=== PATIENT | female | born 1955 | race Two or more races ===

== ENCOUNTER → 2021-10-23 12:46 | Outpatient (CLI) | payer OTHER | END | disposition home or self-care (01) | LOC: LAB 12:46 | DX: Z20.828 Contact with and (suspected) exposure to other viral communicable diseases (principal) ==

== ENCOUNTER 2021-12-08 10:17 | Outpatient (CLI) | payer OTHER | END 2021-12-08 10:23 | disposition home or self-care (01) | LOC: MAMO-SONO 10:17 | PROVIDERS: ATTEND Family Medicine Adult Medicine | DX: N60.12 Diffuse cystic mastopathy of left breast (principal) ==

== ENCOUNTER 2022-12-21 13:36 | Outpatient (CLI) | payer OTHER | END 2022-12-21 13:38 | disposition home or self-care (01) | LOC: NUCLEAR 13:36 | PROVIDERS: ATTEND Family Medicine Adult Medicine | DX: M81.0 Age-related osteoporosis without current pathological fracture (principal) ==

== ENCOUNTER 2024-02-21 10:00 | Outpatient (CLI) | payer OTHER | END 2024-02-21 10:07 | disposition home or self-care (01) | LOC: MAMO-SONO 10:00 | PROVIDERS: ATTEND Family Medicine Adult Medicine | DX: Z12.31 Encounter for screening mammogram for malignant neoplasm of breast (principal) ==

== ENCOUNTER 2024-06-26 07:45 | Outpatient (CLI) | payer OTHER | END 2024-06-26 07:51 | disposition home or self-care (01) | LOC: RAD 07:45 | PROVIDERS: ATTEND Family Medicine Adult Medicine | DX: G57.11 Meralgia paresthetica, right lower limb (principal); M47.896 Other spondylosis, lumbar region ==

== ENCOUNTER 2024-12-20 08:02 | Outpatient (CLI) | payer OTHER | END 2024-12-20 08:06 | disposition home or self-care (01) | LOC: RAD 08:02 | PROVIDERS: ATTEND Family Medicine Adult Medicine | DX: K21.9 Gastro-esophageal reflux disease without esophagitis (principal); I11.9 Hypertensive heart disease without heart failure ==

== ENCOUNTER → 2025-01-10 08:29 | Outpatient (CLI) | payer OTHER | END | disposition home or self-care (01) | LOC: NUCLEAR 08:29 | PROVIDERS: ATTEND Family Medicine Adult Medicine | DX: M81.0 Age-related osteoporosis without current pathological fracture (principal) ==

== ENCOUNTER 2025-03-28 09:51 | Outpatient (CLI) | payer OTHER | END 2025-03-28 09:56 | disposition home or self-care (01) | LOC: MAMO-SONO 09:51 | PROVIDERS: ATTEND Family Medicine Adult Medicine | DX: Z12.31 Encounter for screening mammogram for malignant neoplasm of breast (principal) ==